=== PATIENT | male | born 1960 | race Caucasian/White ===

== ENCOUNTER 2017-11-11 08:25 | Emergency (ER) | payer OTHER ==
[2017-11-11 09:47] VITALS: BP 140/80
[2017-11-11] MEDS ORDERED: HYDROXYZINE HCL50 M1 PO (09:48)
[2017-11-11] MEDS ORDERED: PREDNISONE10 M2 PO (09:48)
--- NOTE | 2017-11-11 09:49 | ED SKIN/ALLERGY COMPLAINT ---
History of Present Illness General Chief Complaint: Skin Rash/ Abcess Stated Complaint: RASH Source: patient Exam Limitations: no limitations Vital Signs & Intake/Output Vital Signs & Intake/Output Vital Signs Date Time Temp Pulse Resp B/P B/P Pulse O2 O2 Flow FiO2 Mean Ox Delivery Rate 11/11 0947 97.0 78 20 140/80 99 Room Air 11/11 0829 96.0 75 16 146/89 99 Room Air Allergies Coded Allergies: No Known Allergies (11/11/17) Reconcile Medications Hydroxyzine Hydrochloride (Atarax) 50 MG TAB 1 TAB PO TID PRN itching Prednisone 10 MG TABLET 1 DOSE PO ONCE DAILY allergy 4 tabs x3 days, 3 tabs x 3 days 2 tabs x 3 days 1 tab x 3 days Triage Note: PT TO ED WITH RASH. STATES HE IS BEING TREATED FOR AN ABCESS. REPORTS HE HAS BEEN PLACED ON DOXYCYCLINE AND BACTRIM, AND AFTER TAKING FOR 5 DAYS HE STARTED TO GET A RASH TO HIS ARMS, DENIES ITCHING CURRENTLY. Triage Nurses Notes Reviewed? yes Onset: Abrupt Duration: day(s): (3), constant, continues in ED, getting worse Timing: single episode today Severity: mild, moderate Severity Numbers: 7 Location: torso, extremities Possible Factors: exposure to allergen No Modifying Factors: none Associated Symptoms: hives, rash HPI: 57-year-old male past medical history of hypertension present for evaluation of an itchy rash. Patient states that he was treated for an abscess on his back about a little over a week ago. The abscess was drained and he was placed on doxycycline and Bactrim. He states that about 5 days later he noticed that he had an itchy rash formed on his back chest and bilateral upper extremities. The airbags were discontinued however the rash continued to spread and is very itchy. He is been taking Benadryl and applying topical hydrocortisone without any improvement. He denies any swelling of her lips tongue or throat. No fevers no spreading redness or discharge from the abscess site. No history of anaphylaxis. (Julio Paris) Past History Travel History Traveled to [place] past 21 day No Medical History Any Pertinent Medical History? see below for history Cardiovascular: hypertension Surgical History Surgical History: non-contributory Psychosocial History What is your primary language Greenlandic Tobacco Use: Never used Family History Hx Contributory? No (Julio Paris) Review of Systems Review of Systems Constitutional: Reports: no symptoms. EENTM: Reports: no symptoms. Respiratory: Reports: no symptoms. Cardiovascular: Reports: no symptoms. GI: Reports: no symptoms. Genitourinary: Reports: no symptoms. Musculoskeletal: Reports: no symptoms. Skin: Reports: see HPI, erythema, rash. Neurological/Psychological: Reports: no symptoms. Hematologic/Endocrine: Reports: no symptoms. Immunologic/Allergic: Reports: no symptoms. All Other Systems: Reviewed and Negative (Stanley SUTTON,Julio) Physical Exam Physical Exam General Appearance: well developed/nourished, no apparent distress, alert, awake Head: atraumatic, normal appearance Eyes: Bilateral: normal appearance, PERRL, EOMI. Ears, Nose, Throat: normal pharynx, normal ENT inspection, hearing grossly normal Neck: normal inspection, supple, full range of motion, NO STRIDOR Respiratory: normal breath sounds, chest non-tender, no respiratory distress, lungs clear, NO WHEEZING Cardiovascular: regular rate/rhythm, normal peripheral pulses Peripheral Pulses: 2+ radial (R), 2+ radial (L) Gastrointestinal: soft, non-tender Back: normal inspection, normal range of motion, no vertebral tenderness Extremities: normal inspection, normal range of motion, no edema, SEE SKIN EXAM Neurologic/Psych: no motor/sensory deficits, awake, alert, oriented x 3 Skin: intact, normal color, warm/dry Skin Problem Location: upper extremities, torso Skin Problem Character: erythema, rash, urticarial, THERE ARE MULTIPLE URTICARIAL ERYTHEMATOUS RAISED LESIONS ON THE BILATERAL UPPER EXTREMITIES ANTERIOR POSTERIOR TORSO. nO UNDERLYING ERYTHEMA OR DISCHARGE. tHE ABSCESS SITE ON THE PATIENT'S BACK IS CLEAN AND DRY. nO DISCHARGE NO FOCAL FLUCTUANT AREAS OR INDURATION. tHERE IS SURROUNDING UTICARIA BUT NO UNDERLYING ERYTHEMA THERE ARE MULTIPLE EXCORIATIONS ON THE TRUNK AND BILATERAL UPPER EXTREMITIES. nO BURROWS Lymphatic: no anterior cervical shelton (Stanley SUTTON,Julio) Progress Differential Diagnosis: abscess/cellulitis, allergic reaction, anaphylaxis, contact dermatitis, drug reaction, erythema multiforme, urticaria Plan of Care: Patient seen and evaluated. He has a diffuse rash on his trunk and bilateral upper extremities consistent with UTICARIA. The abscess site on the back DOES NOT APPEAR INFECTED. NO FOCAL FLUCTUANT AREAS OR DISCHARGE NO PAIN TO PALPATION (Stanley SUTTON,Julio) Departure Departure Disposition: HOME OR SELF CARE Condition: Stable Clinical Impression Primary Impression: Allergic reaction caused by a drug Qualifiers: Encounter type: initial encounter Qualified Code: T78.40XA - Allergy, unspecified, initial encounter Referrals: Cyril Oliva MD (PCP/Family) Additional Instructions: Take prednisone as directed for the full course. Use hydroxyzine 50 mg every 8 hours as needed for itchiness. This may cause drowsiness. over th Counter Pepcid or Zantac as needed for itching. Topical hydrocortisone cream can be applied topically twice daily ovary are back. Use sparingly. Make a follow-up appointment with your primary care doctor in the next few days to recheck your back. Monitor symptoms and return for spreading redness worsening swelling purulent discharge fever or any other concerns. Departure Forms: Customer Survey General Discharge Information Prescriptions: Current Visit Scripts Prednisone 1 DOSE PO ONCE DAILY #1 DP 4 tabs x3 days, 3 tabs x 3 days 2 tabs x 3 days 1 tab x 3 days Hydroxyzine Hydrochloride (Atarax) 1 TAB PO TID PRN itching #30 TAB (Julio Paris) PA/COMMUTATOR REPAIRER Co-Sign Statement Statement: ED Attending supervision documentation- [] I saw and evaluated the patient. I have also reviewed all the pertinent lab results and diagnostic results. I agree with the findings and the plan of care as documented in the PA's/COMMUTATOR REPAIRER's documentation. [X] I have reviewed the ED Record and agree with the PA's/COMMUTATOR REPAIRER's documentation. [] Additions or exceptions (if any) to the PAs/COMMUTATOR REPAIRER's note and plan are summarized below: [] (Almas JIMENEZ,Gaby)
== END 2017-11-11 09:59 ==
LOC: ERH 08:25
DX: T36.95XA Adverse effect of unspecified systemic antibiotic, initial encounter (principal); R21 Rash and other nonspecific skin eruption